=== PATIENT | male | born 1955 | race Caucasian/White ===

== ENCOUNTER 2017-07-12 20:00 | Outpatient (CLI) | payer BC ==
--- OUTSIDE RECORDS SUMMARY | 2017-07-19 14:55 | XMS | Clinical Summary ---
:1955 Author Organization [facility] Address [address] [place] [address] Phone Care Team Providers Name Role Phone , Primary Care Provider Unavailable Allergies No Known Allergies Current Medications Prescription Sig. Disp. Refills Start Date End Date Status testosterone (ANDRODERM) Place 1 patch onto Active 2.5 mg/24 hr the skin daily. sildenafil (VIAGRA) 100 MG Take 100 mg by Active tablet mouth daily as needed. Active Problems Not on file Social History Tobacco Use Types Packs/Day Years Used Date Never Smoker Alcohol Use Drinks/Week oz/Week Comments Yes Sex Assigned at Date Recorded Not on file Last Filed Vital Signs Vital Sign Reading Time Taken Blood Pressure 128/71 10/08/2013 12:36 PM [employer] Pulse 71 10/08/2013 12:36 PM [employer] Temperature 36.6 C (97.8 F) 10/08/2013 12:36 PM [employer] Respiratory Rate 18 10/08/2013 12:36 PM [employer] Oxygen Saturation 98% 10/08/2013 12:36 PM [employer] Inhaled Oxygen Concentration - - Weight - - Height - - Body Mass Index - - Plan of Treatment Not on file Results Not on filefrom Last 3 Months
== END 2017-07-12 20:01 | disposition home or self-care (01) ==
LOC: SLEEPLAB 20:00
PROVIDERS: ATTEND Internal Medicine Pulmonary Disease
DX: G47.33 Obstructive sleep apnea (adult) (pediatric) (principal); R53.83 Other fatigue; R06.81 Apnea, not elsewhere classified; E66.9 Obesity, unspecified
CPT/HCPCS: 95806

== ENCOUNTER 2017-09-02 19:30 | Outpatient (CLI) | payer BC | END 2017-09-02 19:31 | disposition home or self-care (01) | LOC: SLEEPLAB 19:30 | PROVIDERS: ATTEND Internal Medicine Pulmonary Disease | DX: G47.33 Obstructive sleep apnea (adult) (pediatric) (principal); R06.81 Apnea, not elsewhere classified; E66.9 Obesity, unspecified | CPT/HCPCS: 95811 ==

== ENCOUNTER 2021-11-06 08:51 | Outpatient (CLI) | payer BC | END 2021-11-06 08:52 | disposition home or self-care (01) | LOC: TBSIIMAG 08:51 | PROVIDERS: ATTEND Urology | DX: R97.20 Elevated prostate specific antigen [PSA] (principal) | CPT/HCPCS: 72197; 82565 ==

== ENCOUNTER 2023-05-13 09:30 | Outpatient (CLI) | payer BC | END 2023-05-13 09:31 | disposition home or self-care (01) | LOC: RAD 09:30 | PROVIDERS: ATTEND Internal Medicine Critical Care Medicine | DX: R06.00 Dyspnea, unspecified (principal) | CPT/HCPCS: 71046 ==